=== PATIENT | male | born 1935 | race African-American/Black ===

== ENCOUNTER 2019-04-29 15:01 | Emergency (ER) | payer MEDICARE, OTHER ==
--- NOTE | 2019-04-29 17:00 | ER Document Report ---
ED Cardiac - General Chief Complaint: Chest Pain Stated Complaint: CHEST PAIN Time Seen by Provider: 04/29/19 16:55 Primary Care Provider: COLIN MCGOVERN MD [Primary Care Provider] - Follow up in 3-5 days SOBEIDA MORROW MD [ACTIVE STAFF] - Follow up as needed JULIO CHANDLER MD [ACTIVE STAFF] - Follow up as needed MISEAL LEE MD [EMERITUS] - Follow up as needed Notes: Patient is an 83-year-old male who presents emergency department with a chief complaint of chest pain. His chest pain started 5 days ago. Patient states that he has been coughing since then. States that the pain is substernal and r adiates to his back. He admits some shortness of breath. Admits to coughing up purulent green/yellow phlegm. Past medical history includes hypertension and diabetes. - Related Data Allergies/Adverse Reactions: No Known Allergies Allergy (Verified 04/29/19 15:26) Home Medications: Amlopine. Doxycycline Hyclate. Metformin. Ranitidine. Terazosin Past Medical History - General Information source: Patient - Social History Smoking Status: Former Smoker Family History: Reviewed & Not Pertinent Patient has suicidal ideation: No Patient has homicidal ideation: No - Past Medical History Cardiac Medical History: Reports: Hx Hypertension Endocrine Medical History: Reports: Hx Diabetes Mellitus Type 2 GI Medical History: Reports: Hx Gastroesophageal Reflux Disease Review of Systems - Review of Systems Notes: REVIEW OF SYSTEMS: CONSTITUTIONAL : Denies recent illness. Denies recent unintentional weight loss. Denies fever, chills, or sweats. EENT: Denies eye, ear, throat, or mouth pain, discharge, or symptoms. Denies nasal or sinus congestion. CARDIOVASCULAR: See HPI. RESPIRATORY: See HPI. GASTROINTESTINAL: Denies nausea, vomiting, and diarrhea. Denies abdominal pain. Denies constipation. GENITOURINARY: Denies difficulty urinating, burning, blood in urine, urgency or frequency. MUSCULOSKELETAL: Denies neck and back pain. Denies joint pain or swelling. SKIN: Denies rash, itchiness, or lesions HEMATOLOGIC : Denies easy bruising or bleeding. LYMPHATIC: Denies swollen, painful, enlarged glands. NEUROLOGICAL: Denies no numbness or tingling denies weakness. Denies headache. Denies altered mental status. Denies alteration in speech. PSYCHIATRIC: Denies stress, anxiety, alteration in sleep patterns, or depression. All other systems reviewed and negative. Physical Exam - Vital signs Vitals: Temp Resp BP Pulse Ox 97.8 F 18 163/74 H 99 04/29/19 15:09 04/29/19 15:09 04/29/19 15:09 04/29/19 15:09 - Notes Notes: PHYSICAL EXAMINATION: GENERAL: Appears well, healthy, well-nourished, no acute distress. HEAD: Normocephalic, atraumatic. EYES: PERRL, conjunctiva normal, all extraocular movements intact, sclera nonicteric ENT: Moist mucous membranes. NECK: Supple, no noticeable swelling, redness, rash. Normal range of motion. LUNGS: Coarse rhonchi breath sounds bilaterally. CARDIOVASCULAR: S1-S2, regular rate, trigeminal rhythm. Radial pulses 2+, normal. ABDOMEN: Normoactive bowel sounds. Soft, nontender, no guarding, no rebound tenderness, and no masses palpated. EXTREMITIES: Normal strength and range of motion, no pitting or edema. No cyanosis. NEUROLOGICAL: Moves all extremities upon command. Strength 5/5 in all extremities. PSYCH: Normal mood, normal affect. SKIN: Warm, dry. No rash, lesions, ulcerations noted. Normal skin turgor. Course - Re-evaluation Re-evalutation: 04/30/19 Patient's hematology shows no leukocytosis, but he does have anemia noted with a hemoglobin of 12.4 and 37.3. Chemistries are unremarkable and troponin is negative. Lipase is normal. A second troponin was ordered via [facility], which was negative. Patient's chest x-rays show increased interstitial lung markings, which is most consistent with pneumonia, as the patient has been coughing up purulent drainage. Curb 65 Score is 1. Patient is a good candidate for outpatient treatment. He received a dose of Levaquin here in the emergency department, but I will start him on doxycycline. He will follow-up with his primary care provider. He is in agreement with this plan. Follow-up precautions were given. Verbal discharge instructions were given to the patient. They verbalized understanding. They are stable for discharge. - Vital Signs Vital signs: Temp Pulse Resp BP Pulse Ox 97.9 F 22 H 128/57 H 97 04/29/19 19:43 04/29/19 19:43 04/29/19 19:43 04/29/19 19:43 - Laboratory Result Diagrams: 04/29/19 15:11 04/29/19 15:11 Laboratory results interpreted by me: 04/29/19 15:11 RBC 4.34 L Hgb 12.4 L Hct 37.3 L RDW 16.3 H - EKG Interpretation by Me Additional EKG results interpreted by me: 04/29/19 19:11 Trigeminal rhythm. Rate 70. TN 190; QRS 104; QT 396; QTc 553. Discharge - Discharge Clinical Impression: Chest pain Qualifiers: Chest pain type: unspecified Qualified Code(s): R07.9 - Chest pain, unspecified Pneumonia Qualifiers: Pneumonia type: due to unspecified organism Laterality: bilateral Lung location: lower lobe of lung Qualified Code(s): J18.9 - Pneumonia, unspecified organism Condition: Stable Disposition: HOME, SELF-CARE Additional Instructions: You have been diagnosed with a pneumonia. It is very important that you take all of your antibiotics until they are gone even if you are feeling better. Please return to the emergency department immediately if you began having worsening shortness of breath, become confused, have worsening pain, pass out, have persistent vomiting that prevents you from being able to drink fluids for more than 12 hours, or have any other symptoms that are worrisome to you. Please follow-up with your primary care doctor in the next 1-2 days. I highly recommend that you follow-up with a threading machine tender. You were in a trigeminal rhythm here. It most likely is due to your pneumonia. You develop worsening shortness of breath, difficulty breathing, or if you have any concerns that are worrisome to you, please return to the emergency department. Prescriptions: Doxycycline Hyclate 100 mg PO BID #10 tablet.dr Referrals: COLIN MCGOVERN MD [Primary Care Provider] - Follow up in 3-5 days SOBEIDA MORROW MD [ACTIVE STAFF] - Follow up as needed JULIO CHANDLER MD [ACTIVE STAFF] - Follow up as needed MISAEL LEE MD [EMERITUS] - Follow up as needed
[2019-04-29 17:24] LABS: ABSOLUTE LYMPHOCYTES (AUTO) 1.2 10^3/uL (0.5-4.7); ABSOLUTE MONOCYTES (AUTO) 0.5 10^3/uL (0.1-1.4); ABSOLUTE NEUT (AUTO) 3.6 10^3/uL (1.7-8.2); BASOPHILS % (AUTO) 0.4 % (0-2); EOSINOPHILS % (AUTO) 0.8 % (0-6); HEMATOCRIT 37.3 % (37.9-51.0); HEMOGLOBIN 12.4 g/dL (13.5-17.0); LYMPHOCYTES % (AUTO) 23.1 % (13-45); MEAN CORPUSCULAR HEMOGLOBIN 28.7 pg (27.0-33.4); MEAN CORPUSCULAR HGB CONC 33.3 g/dL (32.0-36.0); MEAN CORPUSCULAR VOLUME 86 fl (80-97); MONOCYTES % (AUTO) 8.6 % (3-13); PLATELET COUNT 162 10^3/uL (150-450); RED BLOOD COUNT 4.34 10^6/uL (4.35-5.55); RED CELL DISTRIBUTION WIDTH 16.3 % (11.5-14.0); SEGMENTED NEUTROPHILS % (AUTO) 67.1 % (42-78); TOTAL CELLS COUNTED % (AUTO) 100 %; WHITE BLOOD COUNT 5.4 10^3/uL (4.0-10.5)
--- NOTE | 2019-04-29 17:24 | RADIOLOGY REPORT (SQ) ---
EXAM DESCRIPTION: CHEST 2 VIEWS COMPLETED DATE/TIME: 04/29/2019 5:06 pm REASON FOR STUDY: chest pain COMPARISON: None. EXAM PARAMETERS: NUMBER OF VIEWS: two views TECHNIQUE: Digital Frontal and Lateral radiographic views of the chest acquired. RADIATION DOSE: NA LIMITATIONS: none FINDINGS: LUNGS AND PLEURA: Mildly increased interstitial lung markings. No pneumothorax or pleural effusion. MEDIASTINUM AND HILAR STRUCTURES: No masses or contour abnormalities. HEART AND VASCULAR STRUCTURES: Heart normal size. No evidence for failure. BONES: No acute findings. HARDWARE: None in the chest. OTHER: No other significant finding. IMPRESSION: Mildly increased interstitial lung markings, which in the acute setting may represent in terstitial pulmonary edema or infection. TECHNICAL DOCUMENTATION: JOB ID: [id number] [employer]- All Rights Reserved Reading location - IP/workstation name: [email or web address]
[2019-04-29 17:29] LABS: ALBUMIN 3.9 g/dL (3.5-5.0); ALKALINE PHOSPHATASE 55 U/L (38-126); ANION GAP 6 (5-19); ASPARTATE AMINO TRANSFERASE 21 U/L (17-59); BILIRUBIN,TOTAL 0.6 mg/dL (0.2-1.3); BLOOD UREA NITROGEN 19 mg/dL (7-20); CALCIUM 8.8 mg/dL (8.4-10.2); CARBON DIOXIDE 30 mmol/L (22-30); CHLORIDE 103 mmol/L (98-107); CREATINE KINASE 97 U/L (55-170); GLUCOSE 86 mg/dL (75-110); POTASSIUM 4.1 mmol/L (3.6-5.0); TOTAL PROTEIN 7.2 g/dL (6.3-8.2)
[2019-04-29] MEDS ORDERED: LEVOFLOXACIN 750 MG/D5W RTU 750 MG/150 ML RTUPB IV ONE (17:40)
[2019-04-29 17:41] LABS: CREATINE KINASE MB 1.66 ng/mL (<4.55)
[2019-04-29 17:46] LABS: TROPONIN I < 0.012 ng/mL
[2019-04-29 19:49] VITALS: BP 128/57
--- NOTE | 2019-04-29 23:35 | EKG REPORT ---
SEVERITY:- ABNORMAL ECG - SINUS TACHYCARDIA VENTRICULAR PREMATURE COMPLEXES PROBABLE LEFT ATRIAL ABNORMALITY CONSIDER ANTEROSEPTAL INFARCT PROLONGED QT INTERVAL : Confirmed by: Ankit Wu 29-Apr-2019 23:34:53
== END 2019-04-29 19:45 | disposition home or self-care (01) ==
LOC: ER 15:01
DX: J18.9 Pneumonia, unspecified organism (principal); R07.9 Chest pain, unspecified; R05 Cough; M54.9 Dorsalgia, unspecified; R06.02 Shortness of breath; Z87.891 Personal history of nicotine dependence; Z79.899 Other long term (current) drug therapy; I10 Essential (primary) hypertension; E11.9 Type 2 diabetes mellitus without complications
CPT/HCPCS: 93005; 99285; 96365; 36415; 87040; 82553; 82962; 82550; 83690; 85025; 80053; 84484; 71046; 93010; J1956